=== PATIENT | female | born 1980 | race Caucasian/White ===

== ENCOUNTER 2017-02-10 15:51 | Emergency (ER) | payer SELFPAY ==
[~2017-02-10] VITALS: Ht 160 cm; Wt 99.8 kg
[~2017-02-10 15:51] MED LIST: BACL10TA PO; BSP5T PO; CLON1TAB69; DICY10CA26 PO; DOXY100C2 PO; DULO60CA6 PO; GBPN300C PO; HYDR-3720 PO; HYDR1TAB PO; HYDR25CA92 PO; MORP60TA12; NAPR-243 PO; NITR-65 PO; OXYC-12; OXYC-12 PO; PENI500T PO; POLY17PO23 GT; PROM25SU10 PR; SRTR100T PO; TEMA30CA6 PO; TOPI100T; TRAM50TA2 PO; TRM50T PO; YAZ
--- NOTE | 2017-02-10 16:06 | ED Back Pain ---
General Chief Complaint: General Problems/Pain Stated Complaint: L LEG, L HIP, L FOOT, BACK PAIN Source of Information: Patient Exam Limitations: No Limitations History of Present Illness Time Seen by Provider: 16:03 Initial Comments To ER with low back pain that radiates down the left leg. She states that she was formerly on gabapentin, Vistaril, lisinopril, hydrocodone, baclofen. Her insurance quit paying she states one month ago. She only had enough money to fill the hydrocodone but her nerve pain in the left leg is severe now and she is unable to afford her gabapentin. She denies any recent injuries other than a near fall in the shower causing her to twist. Denies any loss of bowel or bladder control. Denies any saddle anesthesia. No fevers or chills. She states that she has had back surgery. She is from [place]. Location: Lumbar Spine Timing/Duration: 1-2 Days Severity: Moderate Method of Injury: Fall Associated Symptoms: lower back pain Allergies and Home Medications Allergies Coded Allergies: Acetaminophen (Unverified Allergy, Intermediate, SOA, 03/03/09) Propoxyphene (Unverified Allergy, Intermediate, SOA, 03/03/09) Sulfamethoxazole (Unverified Allergy, Intermediate, SKIN PEELING, 03/03/09) Trimethoprim (Unverified Allergy, Intermediate, SKIN PEELING, 03/03/09) Doxycycline (Unverified Allergy, Mild, 08/20/09) Phenylephrine (Verified Allergy, 08/01/11) Uncoded Allergies: PHYLENOLEPHRINE (Allergy, Unknown, 08/05/10) Home Medications Baclofen 10 Mg Tablet, 0.5 EACH PO TID, Ref 0 (Reported) Buspirone Hcl 5 Mg Tablet, 1 TAB PO TID, #90 (Reported) Dicyclomine Hcl 10 Mg Capsule, 1 EACH PO ACHS, #20 Ref 0 FOR STOMACH DISCOMFORT Prescribed by: DEVANTE OROURKE on 08/01/11 1535 Duloxetine Hcl 60 Mg Capsule.dr, 1 EACH PO DAILY, (Reported) Gabapentin 300 Mg Cap, 600 MG PO BID, Ref 0 (Reported) Hydroxyzine Pamoate 25 Mg Capsule, 25 MG PO, (Reported) Polyethylene Glycol 17 Gm Pack, 17 GM GT QD for 10 Days, Ref 0 FOR CONSTIPATION Prescribed by: DEVANTE OROURKE on 08/05/102205 Promethazine Hcl 25 Mg/Supp.rect Supp.rect, 1 SUPP CA QID PRN, #5 Ref 0 FOR NAUSEA AND VOMITING Prescribed by: DEVANTE OROURKE on 08/01/11 1535 Temazepam 30 Mg Capsule, 30 MG PO HS, Ref 0 (Reported) Tramadol Hcl 50 Mg Tablet, 50 MG PO, (Reported) [Christa] , (Reported) Constitutional: see HPI EENTM: see HPI Respiratory: no symptoms reported Cardiovascular: no symptoms reported Genitourinary: no symptoms reported Musculoskeletal: see HPI, back pain Skin: no symptoms reported Psychiatric/Neurological: No Symptoms Reported Past [id number] Hx Patient Social History Recent Foreign Travel: No Contact w/Someone Who Travel: No Physical Exam Vital Signs Capillary Refill : General Appearance: No Apparent Distress, WD/WN, Obese HEENT: PERRL/EOMI, TMs Normal Neck: Full Range of Motion, Normal Inspection Cardiovascular: Normal Peripheral Pulses, Tachycardia Respiratory: Normal Breath Sounds, No Accessory Muscle Use, No Respiratory Distress Gastrointestinal: Normal Bowel Sounds, Non Tender, Soft Extremity: Normal Capillary Refill, Normal Inspection Neurologic/Psychiatric: Alert, Oriented x3, No Motor/Sensory Deficits Skin: Normal Color, Warm/Dry Departure Impression Impression: Primary Impression: Lumbar radiculopathy Disposition: 01 HOME, SELF-CARE Condition: Stable Departure-Patient Inst. Decision time for Depature: 16:05 Referrals: JAYLON LIMA DO (PCP) Primary Care Physician LITA SHARIF DO Patient Instructions: Radiculopathy Add. Discharge Instructions: 1. You may follow up at critical access hospital. They may be able to help fill your prescriptions given your financial concerns 2. All discharge instructions reviewed with patient and/or family. Voiced understanding. CITLALY [facility]ONT[facility]OT [employer] [place] February 10, 2017 16:06
[2017-02-10] MEDS ORDERED: KETOROLAC 60 MG/2 ML VIAL IM ONE (16:15)
[2017-02-10] MEDS ORDERED: DEXAMETHASONE PF 10 MG/ML (DECADRON) VIAL IM ONE (16:15)
[2017-02-10] MEDS ORDERED: ORPHENADRINE 60 MG/2 ML (NORFLEX) AMP IM ONE (16:15)
[2017-02-10 16:27] VITALS: BP 140/104
== END 2017-02-10 16:27 | disposition home or self-care (01) ==
LOC: EDUNIT# 15:51 → ER 15:55
DX: M54.16 Radiculopathy, lumbar region (principal)
CPT/HCPCS: 96372; 99281